=== PATIENT | female | born 1990 | race African-American/Black ===

== ENCOUNTER → 2017-02-28 | Emergency (ER) | payer MEDICARE, OTHER ==
[~2017-02-28] MED LIST: CEPHALEXIN MONOHYDRATE 250 MG CAPSULE (FP) ONE; CEPHALEXIN MONOHYDRATE 500 MG CAPSULE (UD) PO ONE
--- NOTE | 2017-02-28 01:13 | PDOC ---
History of Present Illness - General History Source: Patient <Buster Delgado - Last Filed: 02/28/17 01:16> - General History Source: Patient Exam Limitations: No Limitations - History of Present Illness Initial Comments: 02/28/17 01:22 The patient is a 26 year old female with no significant past medical history who presents to the ED for redness and swelling to the right lef s/p injury 5 days ago. Patient reports she scrapped her right leg on a fire hydrant outside of her job 5 days ago. 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 Patient reports she took the bandage off prior to arrival and noted redness and swelling to the area. The patient denies fever, chills, diaphoresis, cough, SOB, chest pain, and palpitations. The patient denies abdominal pain, nausea, vomiting, and diarrhea. <Amaris Juarez - Last Filed: 02/28/17 01:23> - General Stated Complaint: LEG WOUND Time Seen by Provider: 02/28/17 01:10 Past History - Psycho/Social/Smoking Cessation Hx Suicidal Ideation: No Smoking Status: No Smoking History: Never smoked Number of Cigarettes Smoked Daily: 0 <Buster Delgado - Last Filed: 02/28/17 01:16> <Amaris Juarez - Last Filed: 02/28/17 01:23> - Past Medical History Allergies/Adverse Reactions: Allergies Allergy/AdvReac Type Severity Reaction Status Date / Time No Known Allergies Allergy Unverified 05/26/13 13:40 Home Medications: Ambulatory Orders No Home Medications 0 dose .ROUTE UTDICT 05/26/13 Cephalexin Monohydrate [Keflex -] 500 mg PO BID #14 capsule 02/28/17 Review of Systems - Review of Systems Able to Perform ROS?: Yes Comments:: 02/28/17 01:22 CONSTITUTIONAL: Absent: fever, no chills, no fatigue EYES: Absent: visual changes ENT: Absent: ear pain, no sore throat CARDIOVASCULAR: Absent: chest pain, no palpitations RESPIRATORY: Absent: cough, no SOB GI: Absent: abdominal pain, no nausea, no vomiting, no constipation, no diarrhea GENITOURINARY: Absent: dysuria, no frequency, no hematuria MUSCULOSKELETAL: Absent: back pain, no arthralgia, no myalgia SKIN: +redness and swelling to right leg Absent: rash NEURO: Absent: headache <Amaris Juarez - Last Filed: 02/28/17 01:23> *Physical Exam - Vital Signs Last Vital Signs Temp Pulse Resp BP Pulse Ox 98.2 F 88 18 125/66 98 02/28/17 01:05 02/28/17 01:05 02/28/17 01:05 02/28/17 01:05 02/28/17 01:05 - Physical Exam Comments: 02/28/17 01:23 GENERAL: Well-appearing, well-nourished. No apparent distress. HEENT: Normocephalic, atraumatic. PERRL, EOM intact. CARDIOVASCULAR: Normal S1, S2. Regular rate and rhythm. PULMONARY: Clear to auscultation bilaterally. ABDOMEN: Soft, non-distended, non-tender. EXTREMITIES: Normal ROM in all four extremities. No gross deformities. Abrasion to the superior aspect of the right tibia, no erythema, surrounding tissue appears to be edematous. SKIN: Warm, dry. No rash NEUROLOGICAL: No focal neurological deficits. <Amaris Juarez - Last Filed: 02/28/17 01:23> Medical Decision Making - Medical Decision Making 02/28/17 01:15 Dr. Delgado: The scribe's documentation has been prepared under my direction and personally reviewed by me in its entirery. I confirm that the note above accurately reflects all work, treatment, procedures, and medical decision making performed by me. <Buster Delgado - Last Filed: 02/28/17 01:16> *DC/Admit/Observation/Transfer - Discharge Dispostion Admit: No <Buster Delgado - Last Filed: 02/28/17 01:16> - Attestations Scribe Attestion: 02/28/17 01:23 Documentation prepared by Amaris Juarez, acting as medical insurance coding specialist for Buster Delgado MD/DO. <Amaris Juarez - Last Filed: 02/28/17 01:23> Diagnosis at time of Disposition: Open wound - Discharge Dispostion Disposition: HOME Condition at time of disposition: Stable - Prescriptions Prescriptions: Cephalexin Monohydrate [Keflex -] 500 mg PO BID #14 capsule - Patient Instructions Printed Discharge Instructions: Skin Wound Additional Instructions: Keep wound clean and dry. Wash with soap and water. Keep covered. Take medication as directed. Return if any problems
[2017-02-28 01:14] VITALS: BP 125/66; PULSE 88; TEMP 98.2; BMI 29.5
== END | disposition home or self-care (01) ==
LOC: JER 00:50
DX: S81.801A Unspecified open wound, right lower leg, initial encounter (principal); W22.8XXA Striking against or struck by other objects, initial encounter; Y93.89 Activity, other specified; Y92.480 Sidewalk as the place of occurrence of the external cause; Y99.8 Other external cause status
CPT/HCPCS: 99282-25